=== PATIENT | female | born 1960 | race African-American/Black ===

== ENCOUNTER 2022-04-06 10:21 | Outpatient (RCR) | payer BC, SELFPAY | END 2022-04-06 17:18 | disposition home or self-care (01) | LOC: ANHDMC 10:21 | PROVIDERS: PCP Internal Medicine; Visit Provider Internal Medicine | DX: E11.9 Type 2 diabetes mellitus without complications (principal); Z71.89 Other specified counseling | CPT/HCPCS: G0108 ==

== ENCOUNTER 2022-10-21 01:06 | Day surgery (SDC) | payer BC, SELFPAY ==
[2022-10-11 13:37] VITALS: BMI 29.6
[2022-10-21 10:30] VITALS: BP 142/84; PULSE 84; RESP 19; TEMP 36.2; O2SAT 99
[2022-10-21] MEDS: LACTATED RINGERS 1,000 ML 150 ML IV CONT (10:43)
[2022-10-21 10:44] LABS: Glucose Point of Care 110 mg/dl (65-105)
--- NOTE | 2022-10-21 10:46 | WPDANESEPPF ---
Anes - Initial Pre Proc Eval Procedure: Operation Date: 10/21/22 11:00 Proposed Procedures p Colonoscopy - Ty Real MD Date/Time: 10/21/22 10:46 Surgeon: Ty Real MD Pre Op Diagnosis: hx colon polyps Patient Data Age: 61 Gender: F Height: 1.73 m Weight: 87 kg Last Vital Signs Temp 36.2 C L 10/21/22 10:30 Pulse 84 10/21/22 10:30 Resp 19 10/21/22 10:30 BP 142/84 H 10/21/22 10:30 Pulse Ox 99 10/21/22 10:30 O2 Del Method Room Air 10/21/22 10:30 Allergies Allergy/AdvReac Type Severity Reaction Status Date / Time No Known Allergies Allergy Unknown Verified 10/21/22 10:28 Home Medications Medication Instructions Recorded Confirmed Type blood sugar diagnostic (OneTouch #300 ea 09/23/21 10/06/22 Rx Verio test strips) lancets 33 gauge (OneTouch Delica #100 ea 09/25/21 10/06/22 Rx Plus Lancet) empagliflozin 25 mg tablet 25 mg PO DAILY #90 tabs 07/13/22 10/11/22 Rx (Jardiance) pravastatin 40 mg tablet 40 mg PO DAILY #90 tabs 08/12/22 10/11/22 Rx sitagliptin phosphate 50 See Rx Instructions .Route 08/12/22 10/11/22 Rx mg-metformin 1,000 mg tablet .COMPLEX #180 tabs (Janumet) valsartan 320 1 tablet PO DAILY #90 tabs 08/12/22 10/11/22 Rx mg-hydrochlorothiazide 25 mg tablet glipizide 5 mg tablet 5 mg PO DAILY #90 tabs 10/05/22 10/11/22 Rx carvedilol 25 mg tablet 25 mg PO BID 10/11/22 10/11/22 History Laboratory Tests 10/21/22 10:41 POC Capillary Glucose 110 mg/dl H mg/dl (65-105) Patient hx anesthesia problems: none Family hx anesthesia problems: none Results Review: All pre-operative results and documents have been reviewed as part of the pre-operative evaluation. [facility] Past Medical History Medical History Essential (primary) hypertension Mixed hyperlipidemia Staph infection (~2005) Type 2 diabetes mellitus without complication, without long-term current use of insulin Surgical History Surgical History History of back surgery (~04/2006) herniated disc in low back--staph infection History of x2 History of dilation and curettage hscope d&c--postmenopausal bleeding--enlarged globular uterus, endometrial cavity atrophic--benign Family History Family History Mother Family history of malignant neoplasm of stomach Hypertension Malignant tumor of ovary Social History Social History Smoking status: Never smoker Alcohol intake: never Substance use: never Substance use type: does not use Living arrangements: with family Gender identity (if verbalized by the patient): Female Sexual Orientation (if Verbalized by the Patient): Straight or Heterosexual Spiritual care concerns: No Anes - Eval Final PreProcedure Day of Procedure 10/21/22 10:46 Patient weight: overweight Heart: regular rate and rhythm Lungs: clear to auscultation Airway: Mallampati scale class II Neurological: alert and oriented Last oral intake: >/= 8 hours ASA classification: III Emergent: no Anesthetic plan: proceed Anesthesia type and monitoring: general GIVS and standard monitoring Results Review: All pre-operative results and documents have been reviewed as part of the pre-operative evaluation. Informed Consent: The patient's anesthetic plan and its attendant risks and benefits were discussed with the patient/family/POA. Questions were solicited and answers provided to the satisfaction of the patient/family/POA.
--- NOTE | 2022-10-21 10:55 | PM.HPGS ---
History of Present Illness History of Present Illness Consent: Risks, benefits, and alternatives have been discussed and questions answered. Patient agrees to proceed with procedure. Chief complaint: hx colon polyps Narrative: Shae Maldonado is a 61 year old female Presents for screening colonoscopy. Patient has a prior history of colon polyp identified at previous endoscopy 2018. Patient's current weight appetite and bowel movements are normal. Patient denies abdominal pain. She has had no bleeding. Family history noncontributory. Review of Systems Review of Systems: Review of systems noncontributory. [facility] Past Medical History Medical History Essential (primary) hypertension Mixed hyperlipidemia Staph infection (~2005) Type 2 diabetes mellitus without complication, without long-term current use of insulin Surgical History Surgical History History of back surgery (~04/2006) herniated disc in low back--staph infection History of x2 History of dilation and curettage hscope d&c--postmenopausal bleeding--enlarged globular uterus, endometrial cavity atrophic--benign Family History Family History Mother Family history of malignant neoplasm of stomach Hypertension Malignant tumor of ovary Social History Social History Smoking status: Never smoker Alcohol intake: never Substance use: never Substance use type: does not use Living arrangements: with family Gender identity (if verbalized by the patient): Female Sexual Orientation (if Verbalized by the Patient): Straight or Heterosexual Spiritual care concerns: No Meds Home Medications and Allergies Home Medications Medication Instructions Recorded Confirmed Type blood sugar diagnostic (OneTouch #300 ea 09/23/21 10/06/22 Rx Verio test strips) lancets 33 gauge (OneTouch Delica #100 ea 09/25/21 10/06/22 Rx Plus Lancet) empagliflozin 25 mg tablet 25 mg PO DAILY #90 tabs 07/13/22 10/11/22 Rx (Jardiance) pravastatin 40 mg tablet 40 mg PO DAILY #90 tabs 08/12/22 10/11/22 Rx sitagliptin phosphate 50 See Rx Instructions .Route 08/12/22 10/11/22 Rx mg-metformin 1,000 mg tablet .COMPLEX #180 tabs (Janumet) valsartan 320 1 tablet PO DAILY #90 tabs 08/12/22 10/11/22 Rx mg-hydrochlorothiazide 25 mg tablet glipizide 5 mg tablet 5 mg PO DAILY #90 tabs 10/05/22 10/11/22 Rx carvedilol 25 mg tablet 25 mg PO BID 10/11/22 10/11/22 History Allergies Allergy/AdvReac Type Severity Reaction Status Date / Time No Known Allergies Allergy Unknown Verified 10/21/22 10:28 Vital Signs Vital Signs - 24 hr 10/21/22 10:30 Temperature 97.1 F L Pulse Rate 84 Respiratory Rate 19 Blood Pressure 142/84 H Pulse Oximetry 99 Oxygen Delivery Room Air Exam Narrative: Physical exam reveals patient to be alert. Vital signs stable. HEENT exam is unremarkable. Patient is anicteric. Lungs are clear to auscultation and percussion. Heart is without murmur or extra sounds. Abdomen bowel sounds present soft nontender with no organomegaly. Digital external rectal exam normal. Assessment and Plan Assessment and plan (1) History of colon polyps: Code(s): Z86.010 - Personal history of colonic polyps Status: Acute Assessment and Plan: Patient has a history of colon polyps removed by colonoscopy 2018. Plan for surveillance colonoscopy at this time. Consider follow-up colonoscopy at 5 year intervals.
[2022-10-21 11:18] VITALS: BP 110/76; PULSE 78; RESP 18; O2SAT 99
[2022-10-21 11:28] VITALS: BP 108/72; PULSE 80; RESP 18; O2SAT 99
[2022-10-21 11:38] VITALS: BP 119/82; PULSE 76; RESP 20; O2SAT 100
== END 2022-10-21 11:48 | disposition home or self-care (01) ==
PROVIDERS: PCP Internal Medicine; Visit Provider Internal Medicine Gastroenterology
PROC: 0DJD8ZZ Inspection of Lower Intestinal Tract, Via Natural or Artificial Opening Endoscopic (ICD-10-PCS; CPT 45378; principal; 2022-10-21 11:00)
DX: Z12.11 Encounter for screening for malignant neoplasm of colon (principal); K64.8 Other hemorrhoids; Z86.010 Personal history of colon polyps; I10 Essential (primary) hypertension; E11.9 Type 2 diabetes mellitus without complications; E78.2 Mixed hyperlipidemia; Z79.84 Long term (current) use of oral hypoglycemic drugs
CPT/HCPCS: 45378; 82948; J2704; J7120

== ENCOUNTER 2024-07-28 07:47 | Emergency (ER) | payer BC, SELFPAY ==
--- NOTE | ~2024-07-28 | XR_ITS ---
EXAMINATION: XR scapula LT DATE: 07/28/2024 08:59 INDICATION: Left scapular pain. TECHNIQUE: 2 views of left scapula were obtained. COMPARISON: None. FINDINGS: Alignment is normal. No fracture. There is mild osteoarthritis of glenohumeral joint and mo derate osteoarthritis of acromioclavicular joint. IMPRESSION: 1. Polyarticular osteoarthritis. Reviewed, dictated and finalized at location A. SERVICE CLERK
--- NOTE | ~2024-07-28 | XR_ITS ---
EXAMINATION: XR shoulder LT min 2V DATE: 07/28/2024 08:59 INDICATION: Left shoulder pain. TECHNIQUE: 4 views of left shoulder were obtained. COMPARISON: None. FINDINGS: Bone alignment is normal. No fracture. There is mild osteoarthritis of glenohumeral joint a nd moderate osteoarthritis of acromioclavicular joint. IMPRESSION: 1. Polyarticular osteoarthritis. Reviewed, dictated and finalized at location A. SITION REPORTER
[2024-07-28 07:55] VITALS: BP 141/80; PULSE 92; RESP 18; TEMP 36.2; O2SAT 99
[2024-07-28 07:58] VITALS: BP 142/89; PULSE 90; RESP 21; O2SAT 100
--- NOTE | 2024-07-28 08:05 | PC.NURSE ---
Pt c/o pain to left scapula that radiates down left arm, left anterior chest with numbness to left fingers. CMS intact & pt denies injury.
--- NOTE | 2024-07-28 08:26 | ED.GENADULT ---
HPI - General Adult General Chief complaint: Extremity Injury, Upper Stated complaint: left arm pain Time Seen by Provider: 07/28/24 08:04 History of Present Illness HPI narrative: Patient is a 63-year-old female who presents ER with left shoulder pain. Located in her back over the scapula. Radiates up to the shoulder. Has numbness in the 1st 2 digits of her fingers. Ongoing for 2 weeks. 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 No actual fall or physical trauma identified. She has full range of motion. No chest pain or shortness of breath. No weight loss. She has been taking ibuprofen 600 mg 3 to 4 times a day without improvement. Related Data Allergies Allergy/AdvReac Type Severity Reaction Status Date / Time No Known Allergies Allergy Unknown Verified 07/28/24 08:01 Review of Systems Constitutional: Constitutional: Reports no additional constitutional complaints Cardiovascular: Cardiovascular: Reports no additional cardiovascular complaints Respiratory: Respiratory: Reports no additional respiratory complaints Musculoskeletal: Musculoskeletal: Reports back pain, Denies arthralgias, Denies joint swelling and Reports muscle cramps Integumentary/Breasts: Skin/Breast: Reports system reviewed and no additional complaints, except as docu Neurologic: Denies focal weakness, Reports numbness and Denies weakness PMFSH Past Medical History Medical History Essential (primary) hypertension Mixed hyperlipidemia Staph infection (~2005) Type 2 diabetes mellitus without complication, without long-term current use of insulin Surgical History Surgical History History of back surgery (~04/2006) herniated disc in low back--staph infection History of x2 History of dilation and curettage hscope d&c--postmenopausal bleeding--enlarged globular uterus, endometrial cavity atrophic--benign Family History Family History Mother Family history of malignant neoplasm of stomach Hypertension Malignant tumor of ovary Social History Social History Smoking status: Never smoker Second hand tobacco smoke exposure: No Alcohol intake: never Substance use: never Substance use type: does not use Do You Feel Safe in your Home?: Yes Lack of Transportation: No Lack of Food: Never True Current Housing: I Have Housing Concerned About Future Housing: No Difficulty Paying Gas/Electric Bills: No Difficulty Paying for Meds: No Currently Unemployed: No Education: Master's Degree or Higher Difficulty w/ Childcare or Family Care: No Living arrangements: with family Additional living arrangements comments: Occupation/Education: occupation Additional occupation/education comments: paraprofessional Gender identity (if verbalized by the patient): Female Sexual Orientation (if Verbalized by the Patient): Straight or Heterosexual Spiritual care concerns: No Exam Narrative: GENERAL: Well-appearing, well-nourished, and in no acute distress. HEAD: Normocephalic, atraumatic. ENT: Mucous membranes moist. CHEST: Clear to auscultation. No respiratory distress. HEART: Regular rate and rhythm. Normal peripheral pulses. BACK: No midline tenderness of the midline spine. Inferior aspect of the left scapula with tenderness at the infraspinatus. No deformity/swelling. EXTREMITIES: Normal range of motion. No edema. SKIN: Warm, dry, no rash. NEURO: Alert and oriented x3. PSYCH: Normal mood and affect. Course Course Emergency Course: Mild improvement with toradol/flexeril. D/c with naproxen and flexeril. Recommend f/u with PCP, PT, and possible MRI. Vital Signs Vital signs: Vital Signs Temperature 97.2 F L 07/28/24 07:55 Pulse Rate 92 07/28/24 07:55 Respiratory Rate 18 07/28/24 07:55 Blood Pressure 141/80 H 07/28/24 07:55 Pulse Oximetry 99 07/28/24 07:55 Oxygen Delivery Room Air 07/28/24 07:55 Temperature 97.2 F L 07/28/24 07:55 Pulse Rate 86 07/28/24 09:16 Respiratory Rate 18 07/28/24 09:16 Blood Pressure 130/83 07/28/24 09:16 Pulse Oximetry 98 07/28/24 09:16 Oxygen Delivery Room Air 07/28/24 07:55 Medical Decision Making Vital Signs Vital Signs: Vital Signs Temperature 97.2 F L 07/28/24 07:55 Pulse Rate 92 07/28/24 07:55 Respiratory Rate 18 07/28/24 07:55 Blood Pressure 141/80 H 07/28/24 07:55 Pulse Oximetry 99 07/28/24 07:55 Oxygen Delivery Room Air 07/28/24 07:55 Temperature 97.2 F L 07/28/24 07:55 Pulse Rate 86 07/28/24 09:16 Respiratory Rate 18 07/28/24 09:16 Blood Pressure 130/83 07/28/24 09:16 Pulse Oximetry 98 07/28/24 09:16 Oxygen Delivery Room Air 07/28/24 07:55 Imaging Data Radiologist's impression: ITS Impressions Scapula X-Ray 07/28/24 09:00 IMPRESSION: 1. Polyarticular osteoarthritis. Shoulder X-Ray 07/28/24 09:01 IMPRESSION: 1. Polyarticular osteoarthritis. Discharge Plan Discharge Clinical Impression: Shoulder pain, Radiculopathy Patient Disposition: Home, Self-Care Condition: Stable Instructions: Shoulder Pain (ED) Additional Instructions: Return ER if you suffered a new injury, you have chest pain with shortness of breath, you have additional concerns. Follow-up with your PCP. You may require physical therapy or an MRI. Prescriptions: New cyclobenzaprine 10 mg tablet 10 mg PO TID PRN (Reason: muscle spasm) Qty: 20 0RF naproxen 375 mg tablet 375 mg PO BID Qty: 14 0RF No Action (DME) OneTouch Verio test strips Strip See Rx Instructions .Route Qty: 300 0RF Rx Instructions: Test blood sugar 3 times per day (DME) lancets [OneTouch Delica Plus Lancet] 33 gauge misc See Rx Instructions .Route Qty: 100 3RF Rx Instructions: As directed fluticasone propionate 50 mcg/actuation spray,suspension See Rx Instructions .ROUTE .COMPLEX Qty: 48 0RF Dose Instruction: SHAKE LIQUID AND USE 2 SPRAYS IN EACH NOSTRIL DAILY Rx Instructions: SHAKE LIQUID AND USE 2 SPRAYS IN EACH NOSTRIL DAILY metformin 500 mg tablet 1,000 mg PO BID Qty: 360 1RF valsartan-hydrochlorothiazide 320-25 mg tablet See Rx Instructions .ROUTE .COMPLEX Qty: 90 0RF Dose Instruction: TAKE 1 TABLET BY MOUTH DAILY Rx Instructions: TAKE 1 TABLET BY MOUTH DAILY Jardiance 25 mg tablet See Rx Instructions .ROUTE .COMPLEX Qty: 90 0RF Dose Instruction: TAKE 1 TABLET BY MOUTH DAILY Rx Instructions: TAKE 1 TABLET BY MOUTH DAILY tirzepatide 7.5 mg/0.5 mL pen injector 7.5 mg subcut WEEKLY Qty: 2 0RF pravastatin 40 mg tablet See Rx Instructions .ROUTE .COMPLEX Qty: 90 0RF Dose Instruction: TAKE 1 TABLET BY MOUTH DAILY Rx Instructions: TAKE 1 TABLET BY MOUTH DAILY carvedilol 25 mg tablet See Rx Instructions .ROUTE .COMPLEX Qty: 90 0RF Dose Instruction: TAKE 1 TABLET(25 MG) BY MOUTH TWICE DAILY WITH FOOD Rx Instructions: TAKE 1 TABLET(25 MG) BY MOUTH TWICE DAILY WITH FOOD Follow-up/Referrals: Marilyn Hodge APRN [Primary Care Provider] - 1 Week
[2024-07-28] MEDS: CYCLOBENZAPRINE HCL 10 MG TABLET PO (08:27)
[2024-07-28] MEDS: KETOROLAC 30 MG/ML VIAL (*BKC) IM (08:28)
[2024-07-28 09:16] VITALS: BP 130/83; PULSE 86; RESP 18; O2SAT 98
[2024-07-28 10:33] VITALS: BP 112/76; PULSE 81; RESP 18; TEMP 36.6; O2SAT 96
== END 2024-07-28 10:36 | disposition home or self-care (01) ==
PROVIDERS: Emergency Provider Emergency Medicine; PCP Nurse Practitioner Family
DX: M25.512 Pain in left shoulder (principal); M54.10 Radiculopathy, site unspecified; E11.9 Type 2 diabetes mellitus without complications; E78.2 Mixed hyperlipidemia; I10 Essential (primary) hypertension; M19.012 Primary osteoarthritis, left shoulder
CPT/HCPCS: 73010; 73030; 96372; 99283; A9270; J1885